=== PATIENT | female | born 1990 | race Caucasian/White ===

== ENCOUNTER 2019-07-08 09:35 | Emergency (ER) | payer OTHER ==
[2019-07-08 09:48] VITALS: BP 123/86; PULSE 84; TEMP 98.8; BMI 30.9
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
== END 2019-07-08 10:10 | disposition home or self-care (01) ==
LOC: JERFT 09:35
DX: S13.4XXA Sprain of ligaments of cervical spine, initial encounter (principal); Y93.89 Activity, other specified; Y92.410 Unspecified street and highway as the place of occurrence of the external cause; M54.2 Cervicalgia; V44.5XXA Car driver injured in collision with heavy transport vehicle or bus in traffic accident, initial encounter
CPT/HCPCS: 99281-25